=== PATIENT | male | born 1980 | race Caucasian/White ===

== ENCOUNTER 2017-09-05 11:36 | Emergency (ER) | payer OTHER ==
[~2017-09-05 11:36] MED LIST: Z.0.NO CURRENT MEDS
[2017-09-05 11:38] VITALS: BP 138/93; PULSE 81; RESP 18; TEMP 98; O2SAT 99
[2017-09-05] MEDS ORDERED: MULT-65 PO (11:39)
[2017-09-05] MEDS ORDERED: SODIUM CHLOR 0.9% 1000 ML INJ 1,000 ML IV SCH (11:54)
[2017-09-05] MEDS ORDERED: SODIUM CHLORIDE 0.9% FLUSH 10 ML FLUSH IV FLUSH PRN (12:00)
[2017-09-05] MEDS ORDERED: KETOROLAC TROMETHAMINE 30 MG/ML (IVP) VIAL IVP ONE (12:00)
[2017-09-05] MEDS ORDERED: ONDANSETRON HCL 4 MG/2 ML VIAL IVP ONE (12:00)
[2017-09-05 12:27] LABS: AUTOMATED NEUTROPHIL # 4.8 TH/MM3 (1.8-7.7); BASOPHIL # 0.1 TH/MM3 (0-0.2); BASOPHIL % 1.5 % (0.0-2.0); EOSINOPHIL # 0.4 TH/MM3 (0-0.4); EOSINOPHIL % 4.7 % (0.0-4.0); HEMATOCRIT 40.4 % (39.0-51.0); HEMOGLOBIN 14.5 GM/DL (13.0-17.0); LYMPH % 31.2 % (9.0-44.0); LYMPHOCYTE # 2.8 TH/MM3 (1.0-4.8); MEAN CELL VOLUME 87.8 FL (80.0-100.0); MEAN CORPUSCULAR HEMOGLOBIN 31.4 PG (27.0-34.0); MEAN CORPUSCULAR HGB CONC 35.8 % (32.0-36.0); MEAN PLATELET VOLUME 8.9 FL (7.0-11.0); MONO % 8.8 % (0.0-8.0); MONOCYTE # 0.8 TH/MM3 (0-0.9); NEUT % 53.8 % (16.0-70.0); PLATELET COUNT 230 TH/MM3 (150-450); RED CELL DISTRIBUTION WIDTH 12.5 % (11.6-17.2); WHITE BLOOD COUNT 8.9 TH/MM3 (4.0-11.0)
[2017-09-05 12:30] LABS: BILIRUBIN, URINE NEG (NEG); BLOOD, URINE NEG (NEG); GLUCOSE,URINE NEG (NEG); KETONE, URINE NEG (NEG); NITRITE,URINE NEG (NEG); URINE LEUKOCYTE ESTERASE NEG (NEG)
--- NOTE | 2017-09-05 12:32 | RADRPT ---
EXAM DATE/TIME: 09/05/2017 12:07 [place] COMPARISON: No previous studies available for comparison. INDICATIONS : Right flank pain. ORAL CONTRAST: No oral contrast ingested. RADIATION DOSE: 14.95 CTDIvol (mGy) MEDICAL HISTORY : None SURGICAL HISTORY : None. ENCOUNTER: Initial ACUITY: 2 days PAIN SCALE: 5/10 LOCATION: Right flank TECHNIQUE: Volumetric scanning of the abdomen and pelvis was performed. Using automated exposure control and ad justment of the mA and/or kV according to patient size, radiation dose was kept as low as reasonably achievable to obtain optimal diagnostic quality images. DICOM format image data is available electro nically for review and comparison. FINDINGS: LOWER LUNGS: The visualized lower lungs are clear. LIVER: The liver is mildly enlarged and demonstrates mild fatty infiltration. There is no dilation of the bi liary tree. No calcified gallstones. SPLEEN: Normal size without lesion. PANCREAS: Within normal limits. KIDNEYS: There is acute obstructive uropathy of the right proximal ureter secondary to a 5 mm calcified calcul us at the L3 level. Mild hydronephrosis is noted. The left kidney is unremarkable. ADRENAL GLANDS: Within normal limits. VASCULAR: There is no aortic aneurysm. BOWEL/MESENTERY: A small hiatal hernia is noted. Uncomplicated colonic diverticulosis is noted. The appendix is normal . ABDOMINAL WALL: Within normal limits. RETROPERITONEUM: There is no lymphadenopathy. BLADDER: No wall thickening or mass. REPRODUCTIVE: Within normal limits. INGUINAL: There is no lymphadenopathy or hernia. MUSCULOSKELETAL: Within normal limits for patient age. CONCLUSION: 1. Acute obstructive uropathy of the right proximal ureter at the level of L3 secondary to a 5 mm sean cified calculus resulting in mild ureteropelvicatelectasis. 2. Mild enlarged fatty liver. 3. Uncomplicated colonic diverticulosis. 4. Small hiatal hernia. Aaron Valencia MD on September 05, 2017 at 12:24 Board Certified Radiologist. This report was verified electronically.
[2017-09-05 12:36] LABS: URINE COLOR STRAW (YELLW/STRAW)
[2017-09-05 13:03] LABS: ALBUMIN 4.3 GM/DL (3.4-5.0); AST (GOT) 27 U/L (15-37); BLOOD UREA NITROGEN 14 MG/DL (7-18); CALCIUM 8.9 MG/DL (8.5-10.1); CHLORIDE 106 MEQ/L (98-107); CREATININE 1.02 MG/DL (0.60-1.30); GLOMERULAR FILTRATION RATE 82 ML/MIN (>89); GLUCOSE,RANDOM 88 MG/DL (74-106); SODIUM (NA) 140 MEQ/L (136-145)
[2017-09-05 13:05] LABS: ALT (GPT) 45 U/L (12-78)
[2017-09-05 13:06] LABS: ALKALINE PHOSPHATASE 51 U/L (45-117); TOTAL BILIRUBIN ADULT 0.4 MG/DL (0.2-1.0)
[2017-09-05] MEDS ORDERED: PERC5TAB12 PO (13:07)
[2017-09-05] MEDS ORDERED: TAMS5CAP PO (13:07)
[2017-09-05] MEDS ORDERED: NAPR500T2 PO (13:07)
[2017-09-05] MEDS ORDERED: ONDA4TAB7 SL (13:07)
--- NOTE | 2017-09-05 13:07 | PD ---
HPI Chief Complaint: Flank/Kidney Pain Time Seen by Provider: 11:53 Travel History International Travel<30 days: No Contact w/Intl Traveler<30days: No Traveled to known affect area: No History of Present Illness HPI Is a 36-year-old man presents emergency department complaining of flank pain, more on the right side, rating it is groin, ongoing since yesterday. Intermittent. Severe at times. No nausea vomiting. Some dark urine. No history of kidney stones in the past. No other complaints. History Past Medical History Medical History: Denies Significant Hx Social History Alcohol Use: Yes (OCC.) Tobacco Use: No Allergies-Medications (Allergen,Severity, Reaction): Coded Allergies: shellfish derived (Unverified Allergy, Severe, REDNESS,SOB, 09/05/17) Reported Meds & Prescriptions Reported Meds & Active Scripts Active Reported Multi-Vitamin Daily (Multiple Vitamin) 1 Tab Tab 1 Tab PO DAILY Review of Systems Except as stated in HPI: all other systems reviewed are Neg Physical Exam Narrative GENERAL:36-year-old man, uncomfortable appearing, nontoxic. SKIN: Focused skin assessment warm/dry. HEAD: Atraumatic. Normocephalic. EYES: Pupils equal and round. No scleral icterus. No injection or drainage. ENT: No nasal bleeding or discharge. Mucous membranes pink and moist. NECK: Trachea midline. No JVD. CARDIOVASCULAR: Regular rate and rhythm. No murmur appreciated. RESPIRATORY: No accessory muscle use. Clear to auscultation. Breath sounds equal bilaterally. GASTROINTESTINAL: Abdomen soft, non-tender, nondistended. Hepatic and splenic margins not palpable. MUSCULOSKELETAL: No obvious deformities. No clubbing. No cyanosis. No edema. Data Data Last Documented VS Vital Signs Date Time Temp Pulse Resp B/P (MAP) Pulse Ox O2 Delivery O2 Flow Rate FiO2 09/05/17 11:38 98.0 81 18 138/93 (108) 99 Orders Orders Complete Blood Count With Diff (09/05/17 11:54) Comprehensive Metabolic Panel (09/05/17 11:54) Urinalysis - C+S If Indicated (09/05/17 11:54) Ct Abd/Pel W/O Iv Contrast (09/05/17 11:54) Iv Access Insert/Monitor (09/05/17 11:54) Ondansetron Inj (Zofran Inj) (09/05/17 12:00) Sodium Chlor 0.9% 1000 Ml Inj (Ns 1000 M (09/05/17 11:54) Sodium Chloride 0.9% Flush (Ns Flush) (09/05/17 12:00) Ketorolac Inj (Toradol Inj) (09/05/17 12:00) Labs Laboratory Tests Test 09/05/17 11:45 09/05/17 12:05 White Blood Count 8.9 TH/MM3 Red Blood Count 4.60 MIL/MM3 Hemoglobin 14.5 GM/DL Hematocrit 40.4 % Mean Corpuscular Volume 87.8 FL Mean Corpuscular Hemoglobin 31.4 PG Mean Corpuscular Hemoglobin Concent 35.8 % Red Cell Distribution Width 12.5 % Platelet Count 230 TH/MM3 Mean Platelet Volume 8.9 FL Neutrophils (%) (Auto) 53.8 % Lymphocytes (%) (Auto) 31.2 % Monocytes (%) (Auto) 8.8 % Eosinophils (%) (Auto) 4.7 % Basophils (%) (Auto) 1.5 % Neutrophils # (Auto) 4.8 TH/MM3 Lymphocytes # (Auto) 2.8 TH/MM3 Monocytes # (Auto) 0.8 TH/MM3 Eosinophils # (Auto) 0.4 TH/MM3 Basophils # (Auto) 0.1 TH/MM3 CBC Comment DIFF FINAL Differential Comment Urine Color STRAW Urine Turbidity CLEAR Urine pH 7.0 Urine Specific [place] 1.003 Urine Protein NEG mg/dL Urine Glucose (UA) NEG mg/dL Urine Ketones NEG mg/dL Urine Occult Blood NEG Urine Nitrite NEG Urine Bilirubin NEG Urine Urobilinogen LESS THAN 2.0 MG/DL Urine Leukocyte Esterase NEG Urine WBC LESS THAN 1 /hpf Microscopic Urinalysis Comment CULT NOT INDICATED MDM Medical Decision Making Medical Screen Exam Complete: Yes Emergency Medical Condition: Yes Interpretation(s) LABS: CBC is unremarkable. CMP is unremarkable. UA is unremarkable CT abdomen and pelvis: 5 mm right ureterolithiasis. Differential Diagnosis Renal lithiasis, UTI, muscular skeletal pain, other Narrative Course Medical decision making 36-year-old man with renal colic, CT shows 5 mm mid right ureteral calculus. Recommend supportive treatment, outpatient follow-up. Diagnosis Primary Impression: Kidney calculi Referrals: Adam Edouard MD 3 days Additional Instructions: Take Naprosyn as needed for pain. Take Percocet as needed for severe pain. Take Flomax as prescribed. The Zofran if needed for nausea or vomiting. Follow-up with urology if not improved. Return to the emergency department for any new or worsening symptoms. Med/Other Pt SpecificInfo: Prescription(s) given Scripts Tamsulosin (Flomax) 0.4 Mg Cap 0.4 MG PO HS for Manage Prostate Problems, #14 CAP 0 Refills Prov: Douglas Villalobos MD 09/05/17 Ondansetron Odt (Ondansetron Odt) 4 Mg Tab 4 MG SL Q8HR Y for Nausea/Vomiting, #15 TAB 0 Refills Prov: Douglas Villalobos MD 09/05/17 Oxycodone-Acetaminophen (Percocet) 5-325 mg Tab 1-2 TAB PO Q6H Y for PAIN, #20 TAB 0 Refills Prov: Douglas Villalobos MD 09/05/17 Naproxen (Naproxen) 500 Mg Tab 500 MG PO BID, #20 TAB 0 Refills Prov: Douglas Villalobos MD 09/05/17 Disposition: 01 DISCHARGE HOME Condition: Stable Douglas Villalobos MD Sep 05, 2017 13:07
== END 2017-09-05 13:26 | disposition home or self-care (01) ==
LOC: NEPD 11:36
DX: N20.1 Calculus of ureter (principal)
CPT/HCPCS: 74176; 80053; 81001; 85025; 96374; 96375; 99284; J1885; J2405; J7030